=== PATIENT | female | born 1965 | race Caucasian/White ===

== ENCOUNTER 2023-06-24 08:55 | Emergency (ER) | payer OTHER, SELFPAY ==
[2023-06-24 09:11] VITALS: BP 116/81
[2023-06-24 09:34] LABS: Urine Albumin Trace (Neg - Trace); Urine Bilirubin 2+ (Negative); Urine Character Clear (Clear); Urine Glucose Negative (Negative); Urine Ketone Trace (Negative); Urine Leukocyte Trace (Negative); Urine Nitrite Positive (Negative); Urine Occult Blood Negative (Negative); Urine Specific Gravity 1.025 (<1.030); Urine Urobilinogen 3+ (Neg - 1+)
[2023-06-24 09:39] LABS: Urine Color Orange
[2023-06-24 10:18] LABS: Urine Mucus Few
[2023-06-24 10:19] LABS: Urine Bacteria Few (Negative); Urine Calcium Oxalate Crystals Present; Urine White Cell 0-2 /HPF (0-5)
--- NOTE | 2023-06-24 10:57 | ED.GENMED ---
History of Present Illness
General
Chief Complaint: Flank Pain
Time Seen by Provider: 06/24/23 10:20
Travel History
Have you had any contact with someone who has COVID-19?: No
Do you have any symptoms of coronavirus? Fever > 100 degrees, chills, cough, shortness of breath, sore throat, loss of taste or smell, muscle aches, or headache?: No
History of Present Illness
History of Present Illness:
57-year-old female with history of kidney stones presents to the emergency department for evaluation of UTI symptoms including dysuria, urgency, frequency ongoing for the past 3 to 4 days. Is been taking Pyridium and cranberry supplements with
minimal improvement. Denies any fevers or chills but does report nausea and progressive worsening left flank pain over the past 24 hours. Feels comparable to past kidney stones. Denies any gross hematuria. Prior abdominal surgeries include
x 2, has required lithotripsy/ureteral stenting in the past
Past History
Past History
ED Past Medical History: Asthma, Fibromyalgia, Hypothyroidism, Psychiatric (Anxiety) and Other (Kidney stones, IBS)
ED Past Surgical History: , Orthopedic, Urological and Other (kidney stone surgery with a stent)
Patient has exhibited threatening behavior?: No
PSI?: No
Social History
Tobacco: Non-smoker
Alcohol: Occasional
Drug: None
Personal:
Living: with family
Employment: Not employed
Family History
Family History: Other (Noncontributory)
Review of Systems
Review of Systems
Allergies reviewed?: Yes
All Other Systems: ROS reviewed and negative except as documented in HPI and ROS
Phy Exam
Physical Exam
Physical Exam:
GEN: Well appearing, NAD, WDWN
HEENT: Oral mucosa moist, no scleral icterus
Cardiac: Regular rate
Lung: No respiratory distress, no tachypnea
Abdomen: Soft, nontender, no CVA tenderness bilaterally
MSK: No gross deformity or injuries
Skin: Good color, no pallor or jaundice, no rashes
Neuro: AO x3, moves all extremities freely
Psych: Calm, cooperative
Course
Orders/Labs/Results
Orders:
Orders
06/24/23 09:21
Urinalysis Reflex To Culture Urgent
Date Specimen was Collected: 06/24/23
Time Specimen was Collected: 09:15
Urine Microscopic Reflex Cult Urgent
Urine Culture Urgent
GEORGE Source: U
Specimen Description:
Date Specimen was Collected: 06/24/23
Time Specimen was Collected: 09:15
06/24/23 10:40
CT Abd/pel Without Iv Or Oral Urgent
Comment:
Reason For Exam: flank pain
06/24/23 10:56
IV Insert/Care/Rem.- Treatment PRN
0.9% Sodium Chloride 1000 ml [Nss] 1,000 ml IV BOLUS
Ketorolac [Toradol] 15 mg IV NOW STA
Ondansetron Injectable [Zofran] 4 mg IV NOW STA
06/24/23 11:41
CefTRIAXone [Rocephin] 1,000 mg IV NOW STA
06/24/23 11:46
Sterile Water [Sterile Water For Injection] 10 ml .ROUTE .STK-MED ONE
06/24/23 11:58
Oxycodone [Roxicodone] 5 mg PO NOW STA
Abnormal Lab Results
06/24/23
09:21
Urine Ketones Trace A
(Negative)
Urine Nitrite (Reflex) Positive A
(Negative)
Urine Bilirubin 2+ A
(Negative)
Urine Urobilinogen 3+ A
(Neg - 1+)
Leukocyte Esterase Rfl Trace A
(Negative)
Urine RBC 3-6 A /HPF
(0-2)
Urine Bacteria (Reflex) Few A
(Negative)
Vital Signs
Initial and Last Documented VS:
Initial Vital Signs
Temp Pulse Resp BP Pulse Ox
97.7 F 79 18 116/81 97
06/24/23 09:11 06/24/23 09:11 06/24/23 09:11 06/24/23 09:11 06/24/23 09:11
Last Documented Vital Signs
Temp Pulse Resp BP Pulse Ox
97.7 F 76 15 109/65 99
06/24/23 09:11 06/24/23 12:00 06/24/23 12:00 06/24/23 12:00 06/24/23 12:00
MDM/Problems Addressed
MDM/Problems Addressed:
CT reveals a distal left ureteral stone. Urine Alysis is equivocal for infection but she does not have UTI symptoms. Will treat empirically, pain well-controlled at time of discharge
*Critical Care Note
Total Time (30-74mins, 75-104mins- exclusive of procedures): Not Applicable
ED Attending Note
-
Portions of this chart may have been created with voice recognition software.� Occasional wrong word or��sound alike� substitutions may have occurred due to the inherent limitations of voice recognition software.
Discharge Plan
Departure
Patient Disposition: Home (Routine Discharge)
Date of Disposition: 06/24/23
Time of Disposition: 11:55
Patient with high blood pressure during this ER visit?: No
Discharge Problem:
Ureterolithiasis
Instructions: Kidney Stones (DC)
Prescriptions:
New
ketorolac 10 mg tablet
10 mg PO Q6H 5 Days Qty: 20 0RF
oxycodone 5 mg tablet
5 mg PO Q8H PRN (Reason: Pain) Qty: 10 0RF
cefdinir 300 mg capsule
300 mg PO BID 7 Days Qty: 14 0RF
No Action
famotidine 40 MG tablet
40 mg PO BID
levothyroxine 112 MCG tablet
112 mcg PO DAILY
Patient Comments:
BRAND ONLY PT WILL BRING IN FROM HOME
alprazolam 0.25 MG tablet
0.25 mg PO TID
Patient Comments:
10/03/19 patient filled #30 for 10 days on 10/02/19
trazodone 50 MG tablet
50 - 100 mg PO HSPRN PRN (Reason: sleep)
Patient Comments:
rare
cetirizine 10 MG tablet
10 mg PO HS
citalopram 20 MG tablet
20 mg PO DAILY
ibuprofen 200 MG tablet
200 mg PO Q4HPRN PRN (Reason: mild pain/ fever)
albuterol sulfate 1 PUFF HFA aerosol inhaler
2 puff inhalation PRN PRN (Reason: allergies)
Patient Comments:
pt states she last used in December
polyvinyl alcohol-povidon(PF) [Refresh Classic (PF)] 10 DROPS dropperette
1 drops BOTH EYES PRN PRN (Reason: dry eye)
FA-B cmp,C-rice bran-[place] hips [B-complex with vitamin C] 1 EACH tablet
1 tab PO DAILY
multivitamin with folic acid [Tab-A-Mello] 1 TABLET tablet
1 tab PO DAILY
fluticasone furoate-vilanterol [Breo Ellipta] 1 EACH blister with device
1 ea IH R DAILY PRN (Reason: congestion)
Patient Comments:
pt states she last used in December
Sudafed
1 tab PO PRN PRN (Reason: allergies)
hydrocodone-acetaminophen 5-300 mg tablet
1 tab PO Q4H PRN (Reason: Pain) Qty: 15 0RF
tamsulosin [Flomax] 0.4 mg capsule
0.4 mg PO DAILY Qty: 20 0RF
sulfamethoxazole-trimethoprim [Bactrim DS] 800-160 mg tablet
1 tab PO BID Qty: 20 0RF
Referrals:
Kenya Foley CRNP [Family Provider] -
Interventions
Interventions:
*Risk Screen - Suicide Last Done: 06/24/23 09:11
*General Assessment Last Done: 06/24/23 09:11
*Neglect/Abuse Screening Last Done: 06/24/23 09:11
*ED COVID-19 Vaccine History Last Done: 06/24/23 11:05
*Nursing Disposition Last Done: 06/24/23 12:18
DL-Bedetj-Befkaunocf Assessment Last Done: 06/24/23 11:36
ED-Female Genitourinary Assessment Last Done: 06/24/23 11:36
Discharge Date and Time
Discharge Date/Time: 06/24/23 12:18
Print Language: FRENCH
[2023-06-24 11:03] VITALS: BMI 29.7
[2023-06-24 11:05] VITALS: BP 115/69
[2023-06-24] MEDS: ZOFRAN 4 MG IV (11:13)
[2023-06-24] MEDS: NSS 1000 IV (11:13)
[2023-06-24] MEDS: TORADOL 15 MG IV (11:14)
[2023-06-24] MEDS: ROCEPHIN 1000 MG IV (11:49)
[2023-06-24 12:00] VITALS: BP 109/65
[2023-06-24] MEDS: ROXICODONE 5 MG PO (12:08)
== END 2023-06-24 12:18 | disposition home or self-care (01) ==
LOC: EMR 08:55
PROVIDERS: Emergency Medicine; EMERGENCY PHYSICIAN Emergency Medicine; FAMILY PHYSICIAN Nurse Practitioner Adult Health
DX: N13.2 Hydronephrosis with renal and ureteral calculous obstruction (principal); R11.0 Nausea; E03.9 Hypothyroidism, unspecified; F41.9 Anxiety disorder, unspecified; M79.7 Fibromyalgia; K58.9 Irritable bowel syndrome, unspecified; J45.909 Unspecified asthma, uncomplicated; Z87.442 Personal history of urinary calculi; Z88.2 Allergy status to sulfonamides; Z91.048 Other nonmedicinal substance allergy status
CPT/HCPCS: 99284; 96374; 96375 ×2; 96361; 74176; 81003; 81015; 87086

== ENCOUNTER 2023-07-09 09:23 | Emergency (ER) | payer OTHER, SELFPAY ==
[2023-07-09 09:25] VITALS: BP 125/72
--- NOTE | 2023-07-09 09:42 | ED.GENMED ---
History of Present Illness
General
Chief Complaint: Flank Pain
Source: patient
Exam Limitations: none
Time Seen by Provider: 07/09/23 09:31
Nursing documentation reviewed up to this point in time: agreed with
Travel History
Have you had any contact with someone who has COVID-19?: No
Do you have any symptoms of coronavirus? Fever > 100 degrees, chills, cough, shortness of breath, sore throat, loss of taste or smell, muscle aches, or headache?: No
History of Present Illness
History of Present Illness:
Patient diagnosed with obstructing kidney stone last week, returns to today secondary to worsening pain despite taking tablet of Toradol at home this morning, and approxi-1 hour prior to arrival. Denies fever or chills. Denies nausea or vomiting.
Denies trauma. Denies difficulty with urination. Patient has been evaluated by her urologist, , 2 days ago, and is scheduled for an elective procedure on Tuesday.
Past History
Past History
ED Past Medical History: Asthma, Fibromyalgia, Hypothyroidism, Psychiatric (Anxiety) and Other (Kidney stones, IBS)
ED Past Surgical History: , Orthopedic, Urological and Other (kidney stone surgery with a stent)
Patient has exhibited threatening behavior?: No
PSI?: No
Social History
Tobacco: Non-smoker
Alcohol: Occasional
Drug: None
Personal:
Living: with family
Employment: Not employed
Family History
Family History: Other (Noncontributory)
Review of Systems
Review of Systems
Allergies reviewed?: Yes
All Other Systems: ROS reviewed and negative except as documented in HPI and ROS
Constitutional: Reports no symptoms; Denies fever
ABD/GI: Reports abdominal pain; Denies nausea or vomiting
: Reports flank pain; Denies frequency or difficulty voiding
Skin: Reports no symptoms
Neurological: Reports no symptoms
Phy Exam
Physical Exam
Physical Exam:
Physical Exam
General: moderate painful distress, not acutely ill. afebrile
Head: nc/at. eomi
Neck: supple. normal range of motion
Abdomen: normal bowel sounds. not tender.
Neuro: alert and oriented. no focal neurological deficits
Skin: no rash
Psychiatric: well kept. interactive and cooperative
Extremities: no edema. no calf tenderness.
Course
Orders/Labs/Results
Orders:
Orders
07/09/23 09:41
0.9% Sodium Chloride 500 ml [Nss] 500 ml IV BOLUS
HYDROmorphone [Dilaudid] 0.5 mg IV NOW STA
Ketorolac [Toradol] 15 mg IV NOW STA
07/09/23 09:58
Basic Metabolic Panel Urgent
Complete Blood Count/With Diff Urgent
Urinalysis Reflex To Culture Urgent
Date Specimen was Collected: 07/09/23
Time Specimen was Collected: 09:56
Urine Microscopic Reflex Cult Urgent
Urine Culture Urgent
GEORGE Source: U
Specimen Description:
Date Specimen was Collected: 07/09/23
Time Specimen was Collected: 09:56
07/09/23 11:20
Oxycodone/Acetaminophen [Percocet 5/325] 1 tablet PO NOW STA
Abnormal Lab Results
07/09/23
09:58
Abs Immat Gran (auto) 0.1 H 10^3/uL
(0-0.05)
Immature Gran % 1.0 H %
(0-0.5)
Urine Ketones Trace A
(Negative)
Ur Occult Blood Reflex 4+ A
(Negative)
Urine Bilirubin 1+ A
(Negative)
Leukocyte Esterase Rfl Trace A
(Negative)
Urine RBC >100 A /HPF
(0-2)
Urine Bacteria (Reflex) Moderate A
(Negative)
Urine Albumin (Reflex) 1+ A
(Neg - Trace)
07/09/23 09:58
07/09/23 09:58
Vital Signs
Initial and Last Documented VS:
Initial Vital Signs
Temp Pulse Resp BP Pulse Ox
99.4 F 98 16 125/72 98
07/09/23 09:25 07/09/23 09:25 07/09/23 09:25 07/09/23 09:25 07/09/23 09:25
Last Documented Vital Signs
Temp Pulse Resp BP Pulse Ox
98.3 F 78 18 121/70 98
07/09/23 11:45 07/09/23 11:45 07/09/23 11:45 07/09/23 11:45 07/09/23 11:45
MDM/Problems Addressed
MDM/Problems Addressed:
Patient reports significant improvement in symptoms after treatment. Patient remains afebrile, hemodynamically stable, and nontoxic-appearing. Blood work and urinalysis within normal limits. Urinalysis results, likely contaminant.
Urine culture pending.
Discussed with , urology. As patient is afebrile with adequate pain control, feels that patient can be discharged home with adequate pain medication at home, as patient is already scheduled for procedure on Tuesday morning. Patient will be
advised to return to ED however, with worsening symptoms, i.e. fever/worsening pain/inability to urinate. Patient expresses understanding, at time of discharge to the care of her .
*Critical Care Note
Total Time (30-74mins, 75-104mins- exclusive of procedures): Not Applicable
ED Attending Note
-
Portions of this chart may have been created with voice recognition software.� Occasional wrong word or��sound alike� substitutions may have occurred due to the inherent limitations of voice recognition software.
Discharge Plan
Departure
Patient Disposition: Home (Routine Discharge)
Date of Disposition: 07/09/23
Time of Disposition: 11:22
Patient with high blood pressure during this ER visit?: Yes
Condition: Good
Discharge Problem:
Renal colic
Instructions: Renal Colic (DC)
Prescriptions:
New
ketorolac 10 mg tablet
10 mg PO Q8H PRN (Reason: Pain) Qty: 10 0RF
Rx Instructions:
maximum total duration of 5 days from all oral, intranasal, or parenteral formulations
oxycodone-acetaminophen [Percocet] 5-325 mg Tablet
1 tab PO Q6HPRN PRN (Reason: pain) Qty: 10 0RF
tamsulosin [Flomax] 0.4 mg Capsule
0.4 mg PO DAILY Qty: 7 0RF
No Action
famotidine 40 MG tablet
40 mg PO DAILY
levothyroxine 112 MCG tablet
112 mcg PO DAILY
Patient Comments:
BRAND ONLY PT WILL BRING IN FROM HOME
alprazolam 0.25 MG tablet
0.25 mg PO TID
Patient Comments:
10/03/19 patient filled #30 for 10 days on 10/02/19
trazodone 50 MG tablet
50 mg PO HSPRN PRN (Reason: sleep)
Patient Comments:
rare
cetirizine 10 MG tablet
10 mg PO HS
citalopram 20 MG tablet
20 mg PO DAILY
albuterol sulfate 1 PUFF HFA aerosol inhaler
2 puff inhalation PRN PRN (Reason: allergies)
Patient Comments:
pt states she last used in December
Refresh Classic (PF) 10 DROPS dropperette
1 drops BOTH EYES PRN PRN (Reason: dry eye)
B-complex with vitamin C 1 EACH tablet
1 tab PO DAILY
multivitamin with folic acid [Tab-A-Mello] 1 TABLET tablet
1 tab PO DAILY
fluticasone furoate-vilanterol [Breo Ellipta] 1 EACH blister with device
1 ea IH PRN PRN (Reason: congestion)
Patient Comments:
pt states she last used in December
tamsulosin [Flomax] 0.4 mg capsule
0.4 mg PO DAILY Qty: 20 0RF
hydroxychloroquine 300 mg Tablet
300 mg PO DAILY
Referrals:
Ham Andersen MD [Active] -
Kenya Foley CRNP [Family Provider] -
Activity Restrictions/Additional Instructions:
As discussed, please follow-up with urologist on Tuesday as scheduled for further evaluation and treatment. Until then, please continue to take prescribed medication as needed every 6-8 hours to control your pain. Please return to ED with worsening
symptoms, i.e. fever/worsening pain/inability to urinate. [facility] [place].
Interventions
Interventions:
*Risk Screen - Suicide Last Done: 07/09/23 09:25
*General Assessment Last Done: 07/09/23 09:25
*Neglect/Abuse Screening Last Done: 07/09/23 09:25
ED- Fall Risk Assessment Last Done: 07/09/23 10:01
*ED COVID-19 Vaccine History Last Done: 07/09/23 10:01
*Nursing Disposition Last Done: 07/09/23 11:45
FA-Ozwvlm-Qbgzwnyhzz Assessment Last Done: 07/09/23 10:01
ED-Female Genitourinary Assessment Last Done: 07/09/23 10:01
Discharge Date and Time
Discharge Date/Time: 07/09/23 11:46
Print Language: LEBANESE
[2023-07-09] MEDS: NSS 500 IV (09:56)
[2023-07-09] MEDS: TORADOL 15 MG IV (09:56)
[2023-07-09] MEDS: DILAUDID 0.5 MG IV (09:57)
[2023-07-09 10:00] VITALS: BMI 28.4
[2023-07-09 10:15] LABS: % Basophils 0.9 % (0-2); % Eosinophils 2.1 % (0-6); % Lymphocytes 21.3 % (20.5-51.1); % Monocytes 7.8 % (1.7-9.3); % Neutrophils 66.9 % (42.2-75.2); Absolute Basophils 0.1 10^3/uL (0-0.2); Absolute Eosinophils 0.2 10^3/uL (0-0.7); Absolute Immature Granulocytes 0.1 10^3/uL (0-0.05); Absolute Lymphocytes 1.5 10^3/uL (1.2-3.4); Absolute Monocytes 0.6 10^3/uL (0.1-0.6); Absolute Neutrophils 4.7 10^3/uL (1.4-6.5); Hematocrit 40.3 % (37.0-47.0); Hemoglobin 13.6 g/dL (12.0-16.0); Mean Corp Hgb Conc. 33.7 g/dL (33.0-37.0); Mean Corpuscular Hgb 29.4 pg (27.0-31.0); Mean Platelet Volume 10.1 fL (7.4-10.4); Nucleated Red Blood Cells % 0 %; Platelet Count 341 10^3/uL (130-400); Red Blood Cell Count 4.63 10^6/uL (4.20-5.40); Red Cell Dist. Width 12.9 % (11.5-14.5)
[2023-07-09 10:31] LABS: Blood Urea Nitrogen 15 mg/dl (7-17); Calcium 10.2 mg/dl (8.4-10.2); Carbon Dioxide 25 mmol/L (22-30); Chloride 103 mmol/L (98-107); Estimated Creatinine Clearance 70 ml/min; Glucose 93 mg/dl (70-99); Potassium 4.7 mmol/L (3.5-5.1); Sodium 138 mmol/L (135-145); eGFR > 60.00
[2023-07-09 10:32] LABS: Urine Albumin 1+ (Neg - Trace); Urine Bilirubin 1+ (Negative); Urine Character Slightly Cloudy (Clear); Urine Color Yellow; Urine Glucose Negative (Negative); Urine Ketone Trace (Negative); Urine Leukocyte Trace (Negative); Urine Nitrite Negative (Negative); Urine Occult Blood 4+ (Negative); Urine Specific Gravity 1.025 (<1.030); Urine Urobilinogen 1+ (Neg - 1+)
[2023-07-09 10:49] LABS: Urine Mucus Moderate
[2023-07-09 10:50] LABS: Urine Bacteria Moderate (Negative); Urine Red Blood Cell >100 /HPF (0-2)
[2023-07-09] MEDS: PERCOCET 5/325 1 TABLET PO (11:36)
[2023-07-09 11:45] VITALS: BP 121/70
== END 2023-07-09 11:46 | disposition home or self-care (01) ==
LOC: EMR 09:23
PROVIDERS: EMERGENCY PHYSICIAN Emergency Medicine; FAMILY PHYSICIAN Nurse Practitioner Adult Health
DX: N23 Unspecified renal colic (principal); R03.0 Elevated blood-pressure reading, without diagnosis of hypertension; E03.9 Hypothyroidism, unspecified; F41.9 Anxiety disorder, unspecified; F32.A Depression, unspecified; J45.909 Unspecified asthma, uncomplicated; K58.9 Irritable bowel syndrome, unspecified; M79.7 Fibromyalgia; Z87.442 Personal history of urinary calculi; Z96.651 Presence of right artificial knee joint; Z88.2 Allergy status to sulfonamides; Z91.048 Other nonmedicinal substance allergy status
CPT/HCPCS: 99284; 96374; 96375; 96361; 80048; 81003; 81015; 85025; 87086

== ENCOUNTER 2023-07-11 06:54 | Day surgery (SDC) | payer OTHER, SELFPAY ==
[2023-07-08 06:45] VITALS: BMI 29.7
[2023-07-08 09:00] LABS: Urine Albumin Negative (Neg - Trace); Urine Bilirubin 1+ (Negative); Urine Character Clear (Clear); Urine Color Yellow; Urine Glucose Negative (Negative); Urine Ketone Trace (Negative); Urine Leukocyte Trace (Negative); Urine Nitrite Negative (Negative); Urine Occult Blood Negative (Negative); Urine Specific Gravity 1.015 (<1.030); Urine Urobilinogen Negative (Neg - 1+); Urine pH 6.5 (5.0-9.0)
[2023-07-08 09:11] LABS: INR 0.83; PT 11.2 Sec (11.4-14.6)
[2023-07-08 09:12] LABS: APTT 32.1 Sec (23.4-35.0)
[2023-07-08 10:34] LABS: Urine Squamous Cell 21-25 /LPF (Few)
[2023-07-08 10:35] LABS: Urine Red Blood Cell 0-2 /HPF (0-2)
[2023-07-11] VITALS (7 sets, daily range): BP systolic 106–122; BP diastolic 55–75; BMI 29.7
[2023-07-11 12:05] LABS: Hematocrit 38.4 % (37.0-47.0); Mean Corp Hgb Conc. 33.9 g/dL (33.0-37.0); Mean Corpuscular Hgb 29.2 pg (27.0-31.0); Mean Corpuscular Volume 86.3 fL (81.0-99.0); Mean Platelet Volume 9.8 fL (7.4-10.4); Platelet Count 332 10^3/uL (130-400); Red Blood Cell Count 4.45 10^6/uL (4.20-5.40); Red Cell Dist. Width 12.8 % (11.5-14.5); White Blood Cell Count 6.5 10^3/uL (4.8-10.8)
[2023-07-11] MEDS: NORMOSOL-R 1000 IV (12:12)
[2023-07-11] MEDS: TYLENOL 1000 MG PO (12:12)
[2023-07-11 12:22] LABS: Blood Urea Nitrogen 14 mg/dl (7-17); Carbon Dioxide 25 mmol/L (22-30); Chloride 104 mmol/L (98-107); Estimated Creatinine Clearance 69 ml/min; Glucose 91 mg/dl (70-99); Potassium 4.3 mmol/L (3.5-5.1); Sodium 137 mmol/L (135-145); eGFR > 60.00
[2023-07-11] MEDS: Pyridium 200 MG PO (13:32)
[2023-07-11] MEDS: DETROL LA 4 MG PO (13:32)
== END 2023-07-11 14:30 | disposition home or self-care (01) ==
LOC: SDS 06:54
PROVIDERS: ATTENDING PHYSICIAN Surgery; FAMILY PHYSICIAN Nurse Practitioner Adult Health
DX: N20.1 Calculus of ureter (principal); Z87.442 Personal history of urinary calculi
CPT/HCPCS: 52352; 36415; 74018; 76000; 80048; 81003; 81015; 85027; 85610; 85730; 93005; A4300; C1758; C1769; C1894

== ENCOUNTER → 2024-03-26 08:00 | Outpatient (REF) | payer OTHER, SELFPAY | LOC: HWRAD 08:00 | PROVIDERS: ATTENDING PHYSICIAN Nurse Practitioner Adult Health | DX: J32.9 Chronic sinusitis, unspecified (principal) | CPT/HCPCS: 70486 ==

== ENCOUNTER 2024-12-01 10:14 | Emergency (ER) | payer OTHER, SELFPAY ==
[2024-12-01 10:28] VITALS: BP 97/77
[2024-12-01 11:26] VITALS: BP 108/62
[2024-12-01 11:27] VITALS: BP 112/71
[2024-12-01 11:30] VITALS: BP 107/96; BP 108/62; BP 112/71; PULSE 104; PULSE 89; PULSE 95
--- NOTE | 2024-12-01 11:43 | ED.GENMED ---
History of Present Illness
General
Chief Complaint: Fainting/Passed Out
Source: patient and records
Exam Limitations: none
Time Seen by Provider: 12/01/24 11:07
Nursing documentation reviewed up to this point in time: agreed with
History of Present Illness
History of Present Illness:
59-year-old female with past medical history of hypothyroidism, IBS, asthma, lupus who presents to the emergency department for evaluation after syncopal episode. Patient reports that she woke up this morning and had to go to the bathroom to
urinate. She says that she 'really had to go' and so she got out of bed rather quickly and mosher towards the bathroom. She said she was feeling lightheaded as she made her way to the bathroom and when she got into the bathroom she fell down and
passed out for a second. She says she hit her head on a nearby bathtub. She says she did not have any preceding palpitations, chest pain, shortness of breath and has not had the symptoms since. She says she has some mild headache after hitting
her head but otherwise feels generally well here in the ER. Denies abdominal pain or flank pain. No other injuries from fall including denying neck or back pain or pain in her extremities. She says she has had episodes of lightheadedness before
but has never passed out. She denies any known cardiac history. She is not on any blood thinners.
Past History
Past History
ED Past Medical History: Asthma, Fibromyalgia, Hypothyroidism, Psychiatric (Anxiety) and Other (Kidney stones, IBS)
ED Past Surgical History: , Orthopedic, Urological and Other (kidney stone surgery with a stent)
Patient has exhibited threatening behavior?: No
PSI?: No
Social History
Tobacco: Non-smoker
Alcohol: Occasional
Drug: None
Personal:
Living: with family
Employment: Not employed
Family History
Family History: Other (Noncontributory)
Review of Systems
Review of Systems
All Other Systems: ROS reviewed and negative except as documented in HPI and ROS
Constitutional: Denies fever or chills
Respiratory: Denies trouble breathing
Cardiac: Reports syncope; Denies chest pain or palpitations
ABD/GI: Denies abdominal pain, nausea or vomiting
: Denies flank pain
Musculoskeletal: Denies joint pain, neck pain or back pain
Neurological: Reports headache
Phy Exam
Physical Exam
Physical Exam:
General: Awake, alert, oriented x3; no acute distress
Head: Normocephalic, atraumatic�no palpable hematoma and no signs of scalp abrasion or laceration
Eyes: Conjunctiva normal, EOMI, pupils equal round reactive to light bilaterally
Throat: Airway intact, handling secretions
Neck: Trachea midline, no cervical spine tenderness
Lungs: Clear to auscultation bilaterally, no wheezing, rales, rhonchi
Heart: Regular rate and rhythm, no murmurs, gallops, or rubs
Abd: Soft, non distended, nontender
Back: No signs of trauma to the back or flank
Neuro: Cranial nerves grossly intact, speech fluid, motor and sensory grossly intact, ambulatory steady gait
Skin: No signs of significant trauma
Extremities: Atraumatic, no edema in extremities, no calf tenderness, equal pulses in all extremities
Scores
Heart Failure Risk
Heart Failure Risk Score: Not Applicable
Heart Score for Chest Pain Patients
STEMI patient?: Not applicable
Withdrawal Assessment of Alcohol
Withdrawal Assessment Completed?: Not applicable
Course
Orders/Labs/Results
Orders:
Orders
12/01/24 10:28
EKG [Electrocardiogram (*1)] Urgent
Reason for Study: Chest Pain
EKG- Treatment ONCE
12/01/24 11:20
CT Head W/o Iv Contrast Urgent
Comment:
Reason For Exam: syncope and head strike, headache
12/01/24 11:21
Orthostatic VS- Treatment ONCE
Test Result ONCE
12/01/24 11:37
Complete Blood Count/With Diff Urgent
Comprehensive Metabolic Panel Urgent
Free T4 Urgent
HCG, Serum Qualitative Screen Urgent
Magnesium Urgent
TSH Reflex To Free T4 Urgent
Troponin I Urgent
Abnormal Lab Results
12/01/24
11:37
Absolute Monos (auto) 0.7 H 10^3/uL
(0.1-0.6)
Lymphocytes % 19.9 L %
(20.5-51.1)
Chloride 110 H mmol/L
(98-107)
Calcium 10.3 H mg/dl
(8.4-10.2)
TSH (Reflex) 0.20 L uIU/ml
(0.47-4.68)
12/01/24 11:37
12/01/24 11:37
Vital Signs
Initial and Last Documented VS:
Initial Vital Signs
Pulse Resp BP Pulse Ox
113 18 97/77 96
12/01/24 10:28 12/01/24 10:28 12/01/24 10:28 12/01/24 10:28
Last Documented Vital Signs
Temp Pulse Resp BP Pulse Ox
36.9 C 89 18 105/65 96
12/01/24 11:53 12/01/24 12:00 12/01/24 12:00 12/01/24 12:00 12/01/24 12:00
MDM/Problems Addressed
Differential Diagnosis Includes:
Vasovagal syncope, orthostasis/postural syncope, anemia, electrolyte derangement, dysrhythmia, subarachnoid hemorrhage considered much less likely�headache is mild suspect mild posttraumatic headache
MDM/Problems Addressed:
59-year-old female presents for evaluation after syncopal episode�got up quickly to go to the bathroom and passed out in the restroom, struck her head on the bathtub. She has mild headache but otherwise feels well here. She was tachycardic in
triage blood pressure and heart rate normal on my assessment. Physical exam as above. EKG shows sinus rhythm with no ectopy, no Brugada, normal QTc, no delta wave. Patient placed on monitor technician. Will send labs including CBC and a CMP,
troponin, thyroid studies. Will check CT head in an abundance of caution. Will monitor very closely and reassess after the above.
Labs reviewed: CBC unremarkable, CMP no clinically significant abnormalities. Troponin undetectable. TSH was mildly low, T4 pending. Her CT head shows no acute abnormalities. Patient is in stable sinus rhythm on telemetry, stable vital signs on
your observation. At this point low suspicion for emergent cause for syncope likely vasovagal in the setting of urinary urgency/bladder distention with some element of orthostasis as well. If she is stable for discharge can follow-up with her
primary doctor as an outpatient. She feels comfortable with this plan. Spoke about return precautions and follow-up plan and all questions answered.
*Radiology
Radiology exam reviewed: radiology read reviewed
*Pulse Oximetry
SaO2: 95
Oxygen Mode of Delivery: Room air
Patient hypoxic: no (95%)
*EKG
Interpreted by ED Provider?: Yes
Comparison EKG: no changes
Heart Rate: 99
Rate: normal
Rhythm: sinus
[place]: normal axis
Interval: normal interval
QRS Pattern: normal QRS
Ischemia: no ischemia
*Critical Care Note
Total Time (30-74mins, 75-104mins- exclusive of procedures): Not Applicable
Data Reviewed
Review of Other/Old Records Reveals: Labs and Records
Source: patient and records
ED Attending Note
-
Portions of this chart may have been created with voice recognition software.� Occasional wrong word or��sound alike� substitutions may have occurred due to the inherent limitations of voice recognition software.
Discharge Plan
Departure
Patient with high blood pressure during this ER visit?: No
Discharge Problem:
Syncope
Instructions: Syncope (Fainting) (DC)
Prescriptions:
No Action
famotidine 40 MG tablet
40 mg PO DAILY
levothyroxine 112 MCG tablet
112 mcg PO DAILY
Patient Comments:
BRAND ONLY PT WILL BRING IN FROM HOME
alprazolam 0.25 MG tablet
0.25 mg PO TID
Patient Comments:
10/03/19 patient filled #30 for 10 days on 10/02/19
trazodone 50 MG tablet
50 mg PO HSPRN PRN (Reason: sleep)
Patient Comments:
rare
cetirizine 10 MG tablet
10 mg PO HS
citalopram 20 MG tablet
20 mg PO DAILY
albuterol sulfate 1 PUFF HFA aerosol inhaler
2 puff inhalation PRN PRN (Reason: allergies)
Patient Comments:
pt states she last used in December
Refresh Classic (PF) 10 DROPS dropperette
1 drops BOTH EYES PRN PRN (Reason: dry eye)
B-complex with vitamin C 1 EACH tablet
1 tab PO DAILY
multivitamin with folic acid [Tab-A-Mello] 1 TABLET tablet
1 tab PO DAILY
fluticasone furoate-vilanterol [Breo Ellipta] 1 EACH blister with device
1 ea IH PRN PRN (Reason: congestion)
Patient Comments:
pt states she last used in December
hydroxychloroquine 300 mg Tablet
300 mg PO DAILY
Celebrex
1 tab PO DAILY
ketorolac 10 mg tablet
10 mg PO Q8H PRN (Reason: Pain) Qty: 10 0RF
Rx Instructions:
maximum total duration of 5 days from all oral, intranasal, or parenteral formulations
tamsulosin [Flomax] 0.4 mg Capsule
0.4 mg PO DAILY Qty: 7 0RF
oxycodone-acetaminophen [Percocet] 5-325 mg Tablet
1 tab PO Q6HPRN PRN (Reason: pain) Qty: 10 0RF
Referrals:
Kenya Foley CRNP [Family Provider, Internal Medicine] - Call in 1-3 days for appt
Activity Restrictions/Additional Instructions:
Thank you for visiting the Emergency Department at [facility].
1. Please schedule a follow up appointment as directed. Call first thing tomorrow morning to make an appointment.
2. If indicated, please take your medications as instructed and indicated on discharge paperwork.
3. If any of your symptoms do not improve, or persist, or become more severe within 6-12 hours, please return to the emergency department for further care.
4. Please return to the emergency department if you develop a headache, neck pain/stiffness, fever greater than 100.4F, chest pain, shortness of breath, persistent nausea, vomiting, slurred speech, difficulty walking, numbness/tingling, weakness,
signs of infection or any other symptoms that are worrisome to you.
Please call [phone] if you have any questions.
Interventions
Interventions:
*Risk Screen - Suicide Last Done: 12/01/24 11:28
*General Assessment Last Done: 12/01/24 11:28
*Neglect/Abuse Screening Last Done: 12/01/24 11:28
*ED- Fall Risk Assessment Last Done: 12/01/24 11:28
*ED COVID-19 Vaccine History Last Done: 12/01/24 11:28
ED- Cardiac Assessment Last Done: 12/01/24 11:40
ED- Neurological Assessment Last Done: 12/01/24 11:40
Discharge Date and Time
Print Language: GREENLANDIC
[2024-12-01 11:47] LABS: Hematocrit 42.2 % (37.0-47.0); Hemoglobin 14.7 g/dL (12.0-16.0); Mean Corp Hgb Conc. 34.8 g/dL (33.0-37.0); Mean Corpuscular Volume 87.2 fL (81.0-99.0); Nucleated Red Blood Cells % 0 %; Platelet Count 363 10^3/uL (130-400); Red Cell Dist. Width 12.9 % (11.5-14.5)
[2024-12-01 11:51] VITALS: BP 113/71
[2024-12-01 12:00] VITALS: BP 105/65
[2024-12-01 12:07] LABS: Troponin I < 0.012 ng/ml
[2024-12-01 12:09] LABS: HCG, Serum Qualitative Screen Negative
[2024-12-01 12:10] LABS: ALT (SGPT) 22 U/L (0-35); AST (SGOT) 23 U/L (14-36); Albumin 5.0 g/dl (3.5-5.0); Alkaline Phosphatase 48 U/L (38-126); Blood Urea Nitrogen 11 mg/dl (7-17); Calcium 10.3 mg/dl (8.4-10.2); Carbon Dioxide 22 mmol/L (22-30); Chloride 110 mmol/L (98-107); Glucose 95 mg/dl (70-99); Magnesium 2.0 mg/dl (1.6-2.3); Potassium 4.2 mmol/L (3.5-5.1); Sodium 140 mmol/L (135-145); Total Protein 7.7 g/dl (6.3-8.2); eGFR > 60.00
== END 2024-12-01 13:06 | disposition home or self-care (01) ==
LOC: EMR 10:14
PROVIDERS: EMERGENCY PHYSICIAN Emergency Medicine; FAMILY PHYSICIAN Nurse Practitioner Adult Health
DX: R55 Syncope and collapse (principal); J45.909 Unspecified asthma, uncomplicated; E03.9 Hypothyroidism, unspecified; M32.9 Systemic lupus erythematosus, unspecified; K58.9 Irritable bowel syndrome, unspecified; F41.9 Anxiety disorder, unspecified; M79.7 Fibromyalgia; W22.09XA Striking against other stationary object, initial encounter; Y92.002 Bathroom of unspecified non-institutional (private) residence as the place of occurrence of the external cause
CPT/HCPCS: 99284; 70450; 80053; 83735; 84439; 84443; 84484; 84703; 85025; 93005

== ENCOUNTER → 2024-12-21 14:53 | Outpatient (REF) | payer OTHER, SELFPAY ==
[2024-12-21 15:15] LABS: Hematocrit 38.5 % (37.0-47.0); Hemoglobin 13.2 g/dL (12.0-16.0); Mean Corp Hgb Conc. 34.3 g/dL (33.0-37.0); Mean Corpuscular Volume 88.9 fL (81.0-99.0); Nucleated Red Blood Cells % 0 %; Platelet Count 339 10^3/uL (130-400); Red Cell Dist. Width 12.2 % (11.5-14.5)
== END ==
LOC: RAD 14:53
PROVIDERS: ATTENDING PHYSICIAN Nurse Practitioner Adult Health
DX: R22.0 Localized swelling, mass and lump, head (principal); R60.9 Edema, unspecified
CPT/HCPCS: 36415; 76536; 85025